=== PATIENT | male | born 1945 | race Caucasian/White ===

== ENCOUNTER 2018-12-02 13:25 | Inpatient (IN) ==
[2018-12-02] MEDS ORDERED: ONDANSETRON 4 MG/2 ML VIAL IV STA (13:58)
[2018-12-02 14:18] LABS: Basophils % 0.3 % (0.0-0.8); Eosinophils % 0.1 % (0.00-10.9); Hematocrit 45.2 VOL% (42.0-52.0); Hemoglobin 15.4 GM/DL (14.0-18.0); Immature Granulocytes % 0.3 %; Immature Granulocytes Absolute 0.03 #; Lymphocytes # 1.2 10*3/uL (1.4-4.0); Lymphocytes % 14.2 % (21.2-54.2); Mean Corpuscular HGB Conc 34.1 GM/DL (32-36); Mean Corpuscular Volume 93.8 FL (87-102); Mean Platelet Volume 10.6 FL (9.6-12.0); Monocytes % 4.5 % (1.7-12.7); Neutrophils % 80.6 % (38.7-73.9); Platelet Count 173 T/CUMM (130-400); Red Blood Count 4.82 MC/CUMM (3.8-5.5); Red Cell Distribution Width 11.8 % (9.3-17.3); White Blood Count 8.7 T/CUMM (4-12)
[2018-12-02 14:32] LABS: PT Patient Result 11.1 SECS; Partial Thromboplastin Time 24.2 SECS (0-40)
[2018-12-02 14:44] LABS: Alanine Aminotransferase 23 U/L (16-61); Albumin 3.8 G/DL (3.4-5.0); Alkaline Phosphatase 83 U/L (45-117); Aspartate Amino Transferase 24 U/L (0-37); Blood Urea Nitrogen 15 MG/DL (7-18); Calcium 8.8 MG/DL (8.5-10.1); Glucose 128 MG/DL (74-106); Osmolality,Calculated 281.4 MOS/KG (273-304)
[2018-12-02 14:46] LABS: Troponin I < 0.015 NG/ML (0.00-0.045)
[2018-12-02] MEDS ORDERED: ONDANSETRON 4 MG/2 ML VIAL IV PRN (17:13)
[2018-12-02] MEDS ORDERED: ACETAMINOPHEN 325 MG TABLET PO PRN (17:13)
[2018-12-03 05:15] LABS: Basophils % 0.4 % (0.0-0.8); Eosinophils # 0.1 10*3/uL (0.0-0.87); Eosinophils % 0.7 % (0.00-10.9); Hematocrit 42.8 VOL% (42.0-52.0); Hemoglobin 14.6 GM/DL (14.0-18.0); Immature Granulocytes % 0.5 %; Immature Granulocytes Absolute 0.04 #; Lymphocytes # 2.1 10*3/uL (1.4-4.0); Lymphocytes % 25.9 % (21.2-54.2); Mean Corpuscular HGB Conc 34.1 GM/DL (32-36); Mean Corpuscular Volume 93.7 FL (87-102); Mean Platelet Volume 10.9 FL (9.6-12.0); Monocytes % 8.4 % (1.7-12.7); Neutrophils % 64.1 % (38.7-73.9); Platelet Count 162 T/CUMM (130-400); Red Blood Count 4.57 MC/CUMM (3.8-5.5); Red Cell Distribution Width 11.8 % (9.3-17.3); White Blood Count 8.2 T/CUMM (4-12)
[2018-12-03 05:56] LABS: Calcium 8.3 MG/DL (8.5-10.1); Osmolality,Calculated 280.3 MOS/KG (273-304); Risk Ratio 4.82; Thyroid Stimulating Hormone 1.7 uIU/ml (0.358-3.74); VLDL CHOLESTEROL 33.4 MG/DL
[2018-12-03 06:50] LABS: Apearance,Urine CLEAR (Clear); Bilirubin,Urine Negative (Negative); Blood, Urine Negative (Negative); Glucose,Urine (UA) Negative (Negative); Ketones,Urine Negative (Negative); Nitrite,Urine Negative (Negative); Protein,Urine Negative; RBC,Urine <1 /HPF (0-4); Squamous Epithelial Cell,Urine Occasional /HPF (0-10); Urine Color Yellow (Yellow); Urine Specific Gravity 1.008 (1.001-1.035); Urine Urobilinogen < 2.0 EU/DL (0.2-1.0); WBC,Urine <1 /HPF (0-6)
[2018-12-03] MEDS: MULTIVITAMIN (CENTRUM) TABLET PO SCH (10:15)
[2018-12-03] MEDS: ASPIRIN EC 81 MG TABLET PO SCH (10:16)
[2018-12-03] MEDS: PANTOPRAZOLE 40 MG TABLET PO SCH (10:16)
[2018-12-03] MEDS: ATORVASTATIN 20 MG TABLET PO SCH (21:31)
[2018-12-03] MEDS: POTASSIUM CHLORIDE 20 MEQ TABLET PO PRN ×2 (21:33→23:47)
[2018-12-04] MEDS: POTASSIUM CHLORIDE 20 MEQ TABLET PO PRN ×2 (02:17→04:45)
[2018-12-04 06:14] LABS: Basophils # 0.1 10*3/uL (0.0-0.2); Basophils % 0.6 % (0.0-0.8); Eosinophils % 0.5 % (0.00-10.9); Hematocrit 46.3 VOL% (42.0-52.0); Hemoglobin 15.5 GM/DL (14.0-18.0); Immature Granulocytes % 0.4 %; Immature Granulocytes Absolute 0.03 #; Lymphocytes # 2.4 10*3/uL (1.4-4.0); Lymphocytes % 29.8 % (21.2-54.2); Mean Corpuscular HGB Conc 33.5 GM/DL (32-36); Mean Corpuscular Volume 95.7 FL (87-102); Monocytes % 8.7 % (1.7-12.7); Platelet Count 171 T/CUMM (130-400); Red Blood Count 4.84 MC/CUMM (3.8-5.5); Red Cell Distribution Width 11.9 % (9.3-17.3); White Blood Count 8.2 T/CUMM (4-12)
[2018-12-04 06:37] LABS: Calcium 8.6 MG/DL (8.5-10.1); Osmolality,Calculated 286.8 MOS/KG (273-304)
[2018-12-04] MEDS: MULTIVITAMIN (CENTRUM) TABLET PO SCH (08:41)
[2018-12-04] MEDS: PANTOPRAZOLE 40 MG TABLET PO SCH (08:41)
[2018-12-04] MEDS: ASPIRIN EC 81 MG TABLET PO SCH (08:41)
[2018-12-04] MEDS: CARVEDILOL 6.25 MG TABLET PO SCH ×2 (12:12→16:52)
[2018-12-04] MEDS: ATORVASTATIN 20 MG TABLET PO SCH (20:56)
[2018-12-05 04:16] LABS: Basophils # 0.1 10*3/uL (0.0-0.2); Basophils % 0.7 % (0.0-0.8); Eosinophils # 0.1 10*3/uL (0.0-0.87); Eosinophils % 0.8 % (0.00-10.9); Hematocrit 41.8 VOL% (42.0-52.0); Hemoglobin 13.9 GM/DL (14.0-18.0); Immature Granulocytes % 0.5 %; Immature Granulocytes Absolute 0.04 #; Lymphocytes # 2.2 10*3/uL (1.4-4.0); Lymphocytes % 29.2 % (21.2-54.2); Mean Corpuscular HGB Conc 33.3 GM/DL (32-36); Mean Corpuscular Volume 95.9 FL (87-102); Mean Platelet Volume 10.8 FL (9.6-12.0); Monocytes % 10.3 % (1.7-12.7); Neutrophils % 58.5 % (38.7-73.9); Platelet Count 151 T/CUMM (130-400); Red Blood Count 4.36 MC/CUMM (3.8-5.5); Red Cell Distribution Width 11.9 % (9.3-17.3); White Blood Count 7.6 T/CUMM (4-12)
[2018-12-05 04:22] LABS: Calcium 8.5 MG/DL (8.5-10.1)
[2018-12-05] MEDS ORDERED: CAPTOPRIL 6.25 MG TABLET PO SCH (09:03)
[2018-12-05] MEDS: MULTIVITAMIN (CENTRUM) TABLET PO SCH (09:04)
[2018-12-05] MEDS: ASPIRIN EC 81 MG TABLET PO SCH (09:05)
[2018-12-05] MEDS: PANTOPRAZOLE 40 MG TABLET PO SCH (09:05)
[2018-12-05] MEDS: CARVEDILOL 6.25 MG TABLET PO SCH (09:05)
[2018-12-05 11:31] VITALS: BP 141/97
== END 2018-12-05 14:00 | disposition home or self-care (01) | DRG 65 ==
LOC: N.ED 13:25 → SUATTDRO 17:11 → SUPCPDRO 17:11 → N.EDINP 17:11 → N.4E 19:21
PROVIDERS: ADMIT Internal Medicine; ATTEND Internal Medicine